=== PATIENT | male | born 1995 | race Caucasian/White ===

== ENCOUNTER 2016-11-11 19:22 | Emergency (ER) | payer SELFPAY ==
[~2016-11-11] VITALS: Ht 180.3 cm; Wt 72.7 kg
[2016-11-11 19:34] VITALS: TEMP 98.9
[2016-11-11] MEDS ORDERED: CEPHALEXIN500 M1 PO (21:34)
[2016-11-11] MEDS ORDERED: NORCO 325 MG-51 TAB PO (21:34)
[2016-11-11 22:06] VITALS: BP 128/85; PULSE 97
== END 2016-11-11 22:10 | disposition home or self-care (01) ==
LOC: COL.ER 19:22
DX: S61.314A Laceration without foreign body of right ring finger with damage to nail, initial encounter (principal); F17.210 Nicotine dependence, cigarettes, uncomplicated; Z23 Encounter for immunization; W23.1XXA Caught, crushed, jammed, or pinched between stationary objects, initial encounter; Y92.512 Supermarket, store or market as the place of occurrence of the external cause; Y99.0 Civilian activity done for income or pay